=== PATIENT | male | born 1945 | race Caucasian/White ===

== ENCOUNTER → 2017-01-19 | Outpatient (CLI) | payer MEDICARE, OTHER ==
--- NOTE | 2017-01-22 18:26 | PCVCIMAG ---
APPROVED REPORT Exam: Stress Echocardiogram Indication: CAD, HYPERTENSION, HYPERLIPIDEMIA Stress Nurse: Shavon Koo RN Status: routine Ht: 5 ft 8 in HR: 172 bpm BP: 104/80 mmHg Stress Test Details HR Resting HR: 75 bpmMax Heart Rate (APMHR): 151 bpm Max HR Achieved: 151 bpmTarget HR (85% APMHR): 128 bpm % of APMHR: 100 HR response to stress: Blunted HR response to stress BP Resting BP: 104/80 mmHg Max BP: 152/80 mmHg ECG Pre-Stress Echo The resting Echocardiogram showed normal left ventricular contractility with an estimated Ejection Fraction of about 55-60%. Normal wall motion in all segments on baseline images. Post-Stress Echo The stress Echocardiogram showed normal left ventricular contractility with an estimated Ejection Fraction of about 60-65%. Normal augmentation of wall motion in all segments on post stress images. Conclusion Clinical Response: Non-ischemic Exercise Capacity: Average Stress ECG Response: Non-ischemic Stress Echo Images: Non-ischemic
== END | disposition home or self-care (01) ==
LOC: PCVCIMAG 09:40
PROVIDERS: ATTEND Internal Medicine Cardiovascular Disease
DX: I25.10 Atherosclerotic heart disease of native coronary artery without angina pectoris (principal); E78.5 Hyperlipidemia, unspecified; I10 Essential (primary) hypertension
CPT/HCPCS: 93325; 93351

== ENCOUNTER → 2018-06-18 | Outpatient (CLI) | payer MEDICARE, OTHER | END | disposition home or self-care (01) | LOC: PCVCCLINIC 14:49 | PROVIDERS: ATTEND Internal Medicine Cardiovascular Disease | DX: I25.10 Atherosclerotic heart disease of native coronary artery without angina pectoris (principal); I10 Essential (primary) hypertension; I77.819 Aortic ectasia, unspecified site; E78.00 Pure hypercholesterolemia, unspecified; Z72.89 Other problems related to lifestyle; Z96.642 Presence of left artificial hip joint; Z88.2 Allergy status to sulfonamides; Z79.82 Long term (current) use of aspirin | CPT/HCPCS: 93005; G0463 ==

== ENCOUNTER → 2018-07-11 | Outpatient (CLI) | payer MEDICARE, OTHER ==
--- NOTE | 2018-07-11 16:01 | PCVCIMAG ---
APPROVED REPORT Study performed: 07/11/2018 10:39:10 Exam: Stress Echocardiogram Indication: Hypertension, CAD Patient Location: Echo lab Stress Nurse: Nalini Lau RN Ht: 5 ft 8 in HR: 68 bpm BP: 130/80 mmHg Rhythm: NSR Procedure The patient underwent an Exercise Stress Test using the Henrry Protocol. Blood pressure, heart rate, and EKG were monitored. An Echocardiogram was performed by tractor trailer technician in four stages in quad fashion. At peak stress, four selected images were obtained and placed side by side with resting images for comparison. Stress Test Details Stress Test: Exercise stress testing was performed using a Henrry protocol. HR Resting HR: 68 bpmMax Heart Rate (APMHR): 149 bpm Max HR Achieved: 142 bpmTarget HR (85% APMHR): 126 bpm % of APMHR: 95 Recovery HR: 83 bpm HR response to stress: Normal HR response to stress BP Resting BP: 130/80 mmHg Max BP: 164/80 mmHg Recovery BP: 136/74 mmHg BP response to stress: Normal blood pressure response to stress. ECG Resting ECG: Sinus Rhythm Stress ECG: Sinus Rhythm Recovery ECG: Sinus Rhythm Clinical Reason for Termination: Maximal effort Exercise duration: 10 min sec Highest Stage Achieved: Stage 4: 4.2 mph at 16% grade. Exercise capacity: 13.30 METs Overall Exercise Capacity for Age: Good Pre-Stress Echo The resting Echocardiogram showed normal left ventricular contractility with an estimated Ejection Fraction of about 55-60%. Post-Stress Echo The stress Echocardiogram showed normal left ventricular contractility with an estimated Ejection Fraction of about 60-65%. Normal augmentation of wall motion in all segments on post stress images. Clinical No clinical or ECG evidence for ischemia. Conclusion Clinical Response: Non-ischemic Exercise Capacity: Average Stress ECG Response: Non-ischemic Stress Echo Images: Non-ischemic The left ventricle is normal in size and wall thickness in both the rest and stress images. Ascending Aorta is dilated at 4.4cm. Other Information Study Quality: Good <Conclusion> The left ventricle is normal in size and wall thickness in both the rest and stress images. Ascending Aorta is dilated at 4.4cm.
== END | disposition home or self-care (01) ==
LOC: PCVCIMAG 10:28
PROVIDERS: ATTEND Internal Medicine Cardiovascular Disease
DX: I25.10 Atherosclerotic heart disease of native coronary artery without angina pectoris (principal); I10 Essential (primary) hypertension
CPT/HCPCS: 93325; 93351